=== PATIENT | male | born 1980 | race Caucasian/White ===

== ENCOUNTER 2018-11-14 18:07 | Emergency (ER) | payer OTHER ==
--- NOTE | 2018-11-14 18:08 | EDPHY ---
H & P Time Seen by Provider: 11/14/18 18:08 HPI/ROS: HPI CHIEF COMPLAINT: Abrasion right arm. HISTORY OF PRESENT ILLNESS: This patient is a 38-year-old male, otherwise healthy, does have a history of seizures and takes Keppra, presents emergency room with a right arm rather superficial abrasion. He sustained this while catching his arm on a miguel nail on a work van. He states he became concerned as it was miguel and is not had updated tetanus shot he believes in 20 years. He presents to the emergency room requesting a tetanus shot. Past Medical History: Denies medical history except for seizures on Keppra Past Surgical History: Denies significant surgical history Social History: Denies drugs alcohol tobacco. Family History: Noncontributory Patient's PCP is in [facility] [place]. ROS REVIEW OF SYSTEMS: 10 Systems were reviewed and negative with the exception of the elements mentioned in the history of present illness. Exam Constitutional triage nursing summary reviewed, vital signs reviewed, awake/ alert. Eyes normal conjunctivae and sclera, EOMI, PERRLA. HENT normal inspection, atraumatic, moist mucus membranes, no epistaxis, neck supple/ no meningismus, no raccoon eyes. Respiratory clear to auscultation bilaterally, normal breath sounds, no respiratory distress, no wheezing. Cardiovascular rate normal, regular rhythm, no murmur, no edema, distal pulses normal. Gastrointestinal soft, non-tender, no rebound, no guarding, normal bowel sounds, no distension, no pulsatile mass. Genitourinary no CVA tenderness. Musculoskeletal no midline vertebral tenderness, full range of motion, no calf swelling, no tenderness of extremities, no meningismus, good pulses, neurovascularly intact. Skin right lateral arm shows a 2 cm abrasion. No deep laceration. No signs of infection. Neurologic awake, alert and oriented x 3, AAOx3, moves all 4 extremities equally, motor intact, sensory intact, CN II-XII intact, normal cerebellar, normal vision, normal speech. Psychiatric normal mood/affect. Heme/Lymph/Immune no lymphadenopathy. Differential Diagnosis: Includes but is not limited to in a particular order need for tetanus shot, soft tissue wound, abrasion Medical Decision Making: Plan for this patient is a very superficial abrasion to his right arm. Will update his tetanus shot at his request. I do recommend the patient watches it closely for signs of infection. This includes redness, swelling, pain. Source: Patient Allergies/Adverse Reactions: amoxicillin Allergy (Verified 11/14/18 18:13) Home Medications: Medication Instructions Recorded Keppra 11/14/18 Multivitamins 11/14/18 Departure - Departure Disposition: Home, Routine, Self-Care Clinical Impression: Abrasion Condition: Good Instructions: Abrasion (ED), Diphtheria/Acellular Pertussis/Tetanus Vaccine ( By injection) Additional Instructions: 1. Watch for signs of infection. 2. You're tetanus shot was updated here in the emergency room. Referrals: LESTER ALVAREZ MD [Other] - As per Instructions
[2018-11-14] MEDS ORDERED: TDAP ADULT 0.5 ML INJ (BOOSTRIX) IM ONE (18:19)
[2018-11-14 18:23] VITALS: BP 116/86
== END 2018-11-14 18:50 | disposition home or self-care (01) ==
LOC: CED 18:07
DX: S40.811A Abrasion of right upper arm, initial encounter (principal); W26.8XXA Contact with other sharp object(s), not elsewhere classified, initial encounter; G40.909 Epilepsy, unspecified, not intractable, without status epilepticus; Z79.899 Other long term (current) drug therapy
CPT/HCPCS: 90471-ER; 99283-ER